=== PATIENT | female | born 2000 | race Caucasian/White ===

== ENCOUNTER 2023-04-28 09:40 | Inpatient (IN) | payer OTHER ==
[2023-04-29] MEDS ORDERED: Bupivacaine 0.25% HCL 30 ML VIAL ONE (08:00)
[2023-04-29] MEDS ORDERED: Promethazine HCl 25 MG/ML VIAL IM PRN (20:14)
[2023-04-29] MEDS ORDERED: Diphenoxylate HCl/Atropine Tablet PO PRN (20:14)
[2023-04-29] MEDS ORDERED: hydrALAZINE 20 MG/ML VIAL SLOW IVP PRN (20:14)
[2023-04-29] MEDS ORDERED: Misoprostol 200 MCG TAB PR PRN (20:14)
[2023-04-29] MEDS ORDERED: HYDROcodone/Acetaminophen 5/325 mg Tablet PO PRN (20:14)
[2023-04-29] MEDS ORDERED: Oxytocin 30 units/NS 500 ML 500 ML IV SCH ×3 (20:14)
[2023-04-29] MEDS ORDERED: Methylergonovine 0.2 MG/ML VIAL IM PRN (20:14)
[2023-04-29] MEDS ORDERED: Acetaminophen 500 MG TAB PO PRN (20:14)
[2023-04-29] MEDS ORDERED: Lidocaine 1% (PF) 30 ML VIAL SC PRN (20:14)
[2023-04-29] MEDS ORDERED: Ibuprofen 800 MG TAB PO PRN (20:14)
[2023-04-29] MEDS ORDERED: Tranexamic Acid 1,000 MG/10 ML VIAL IVP PRN (20:14)
[2023-04-29] MEDS ORDERED: fentaNYL 50 mcg/mL 1 mL Vial SLOW IVP PRN (20:14)
[2023-04-29] MEDS ORDERED: Carboprost 250 MCG/ML AMP IM PRN (20:14)
[2023-04-29] MEDS ORDERED: Ondansetron PF 4 MG/2 ML Vial IVP PRN (20:14)
[2023-04-29 20:15] VITALS: BMI 34.2
[2023-04-29] MEDS: Misoprostol 100 MCG TAB PO SCH (20:49)
[2023-04-29] MEDS: Lactated Ringer's 1,000 ML IV SCH (20:49)
[2023-04-29 21:03] LABS: Hematocrit 34.9 % (34.9-44.5); Hemoglobin 12.4 g/dL (12.0-15.5); Mean Corpuscular HGB CONC 35.5 g/dL (32.0-36.0); Mean Corpuscular Hemoglobin 32.5 pg (27.0-33.0); Mean Corpuscular Volume 91.6 fl (81.6-98.3); Mean Platelet Volume 10.2 fl (7.4-10.4); Platelet Count 309 10x3/uL (150-450); RBC Distribution Width 12.6 % (11.5-14.5); Red Blood Cell (RBC) Count 3.81 10x6/uL (3.90-5.03); White Blood Cell (WBC) Count 10.7 10x3/uL (3.5-10.5)
[2023-04-29 21:49] LABS: Syphilis Antibody Nonreactive (Nonreactive)
[2023-04-29 21:51] LABS: HBSAg Index 0.17 S/CO (0-0.99); Hep B Surf Ag - L&D Non-Reactive S/CO (NonReactive)
[2023-04-30] MEDS: Misoprostol 100 MCG TAB PO SCH ×4 (00:16→20:09)
[2023-04-30] MEDS ORDERED: Penicillin G Potassium 5 MILL.UNITS in Sodium Chloride 0.9% 100 ML IVPB SCH (01:00)
[2023-04-30] MEDS: Penicillin G 2.5 MILL.units 2.5 MILL.UNITS in Premix 1 BAG IVPB SCH ×4 (04:08→20:10)
[2023-04-30] MEDS ORDERED: fentaNYL/Ropivacaine Epidural 100 ML ONE (13:58)
[2023-04-30] MEDS ORDERED: Promethazine HCl 25 MG/ML VIAL IM PRN (14:55)
[2023-04-30] MEDS ORDERED: Naloxone HCl 0.4 mg/ml Vial IVP PRN ×2 (14:55)
[2023-04-30] MEDS ORDERED: Ondansetron PF 4 MG/2 ML Vial IVP PRN (14:55)
[2023-04-30] MEDS ORDERED: ePHEDrine Sulfate 50 MG/10 ML VIAL SLOW IVP PRN (14:55)
[2023-04-30] MEDS ORDERED: Lactated Ringer's 500 ML IV PRN (14:55)
[2023-04-30] MEDS ORDERED: Acetaminophen 325 MG TAB PO PRN (14:55)
[2023-04-30] MEDS ORDERED: Moisturizing Cream (Eucerin) 113 GM JAR TOP PRN (14:55)
[2023-04-30] MEDS ORDERED: diphenhydrAMINE 50 MG/ML VIAL IVP PRN (14:55)
[2023-04-30] MEDS ORDERED: fentaNYL 2 mcg/Ropivacaine 0.2% Epidural 100 ML CADD EPIDURAL SCH (15:00)
[2023-04-30] MEDS ORDERED: Communication Order-Pharmacy FS SCH (15:00)
[2023-04-30] MEDS: Lactated Ringer's 1,000 ML IV SCH ×2 (15:02→20:09)
[2023-04-30] MEDS ORDERED: Azithromycin 500 MG VIAL ONE (23:37)
[2023-04-30] MEDS ORDERED: CEFAZOLIN 2 GM VIAL ONE (23:37)
[2023-04-30] MEDS ORDERED: Azithromycin 500 MG in Sodium Chloride 0.9% 250 ML 250 ML IVPB SCH (23:45)
[2023-04-30] MEDS ORDERED: CEFAZOLIN 2 GM in Sodium Chloride 0.9% 100 ML IVPB SCH (23:45)
[2023-04-30] MEDS ORDERED: Lidocaine 2% MPF 10 ML AMP (For Epidural Use) ONE (23:47)
[2023-04-30] MEDS ORDERED: Famotidine/PF 20 mg/2ml Vial SLOW IVP PRN (23:54)
[2023-04-30] MEDS ORDERED: Bicitra 30 ML UDCUP PO PRN (23:54)
[2023-04-30] MEDS ORDERED: Ondansetron PF 4 MG/2 ML Vial ONE (23:56)
[2023-04-30] MEDS ORDERED: Ketorolac Tromethamine 30 MG/ML VIAL ONE (23:57)
[2023-04-30] MEDS ORDERED: Morphine PF 10 MG/10 ML VIAL ONE (23:57)
[2023-04-30] MEDS ORDERED: Oxytocin 10 UNITS/ML VIAL ONE (23:57)
[2023-05-01] MEDS ORDERED: PHENYLEPHRINE-NS 100 MCG/ML 10 ML SYRINGE ONE (00:10)
[2023-05-01] MEDS ORDERED: diphenhydrAMINE 50 MG/ML VIAL IVP PRN (00:20)
[2023-05-01] MEDS ORDERED: HYDROmorphone 0.5 MG/0.5 ML SYRINGE SLOW IVP PRN (00:20)
[2023-05-01] MEDS ORDERED: Promethazine HCl 25 MG SUPP PR PRN (00:20)
[2023-05-01] MEDS ORDERED: Promethazine HCl 25 MG/ML VIAL IM PRN ×2 (00:20→03:53)
[2023-05-01] MEDS ORDERED: Moisturizing Cream (Eucerin) 113 GM JAR TOP PRN (00:20)
[2023-05-01] MEDS ORDERED: Meperidine HCl/PF 25 MG/ML VIAL SLOW IVP PRN (00:20)
[2023-05-01] MEDS ORDERED: Ketorolac Tromethamine 30 MG/ML VIAL IVP PRN (00:20)
[2023-05-01] MEDS ORDERED: Ondansetron PF 4 MG/2 ML Vial IVP PRN ×3 (00:20→03:53)
[2023-05-01] MEDS ORDERED: Naloxone HCl 0.4 mg/ml Vial IV PRN (00:20)
[2023-05-01] MEDS ORDERED: Naloxone HCl 0.4 mg/ml Vial IVP PRN ×2 (00:20)
[2023-05-01] MEDS ORDERED: Communication Order-Pharmacy FS SCH ×2 (00:30→04:00)
[2023-05-01] MEDS ORDERED: Ketorolac Tromethamine 30 MG/ML VIAL IVP SCH (00:30)
[2023-05-01] MEDS: fentaNYL 50 mcg/mL 1 mL Vial SLOW IVP PRN ×2 (00:59→03:03)
[2023-05-01] MEDS: Penicillin G 2.5 MILL.units 2.5 MILL.UNITS in Premix 1 BAG IVPB SCH (01:21)
[2023-05-01] MEDS: Misoprostol 100 MCG TAB PO SCH (01:36)
[2023-05-01] MEDS: Lactated Ringer's 1,000 ML IV SCH (01:37)
[2023-05-01] MEDS ORDERED: fentaNYL 50 mcg/mL 1 mL Vial ONE (03:01)
[2023-05-01] MEDS ORDERED: Lanolin Ointment 7 GM TUBE TOP PRN (03:53)
[2023-05-01] MEDS ORDERED: Boostrix 0.5 ML (Tdap) VIAL (>/=7 yrs of age) IM ONE (03:53)
[2023-05-01] MEDS ORDERED: hydrALAZINE 20 MG/ML VIAL SLOW IVP PRN (03:53)
[2023-05-01] MEDS ORDERED: diphenhydrAMINE 25 MG CAP PO PRN (03:53)
[2023-05-01] MEDS ORDERED: Bisacodyl 10 MG SUPP PR PRN (03:53)
[2023-05-01] MEDS ORDERED: Simethicone Chewable 80 MG TAB PO PRN (03:53)
[2023-05-01] MEDS ORDERED: fentaNYL 50 mcg/mL 1 mL Vial SLOW IVP PRN (04:43)
[2023-05-01] MEDS: Ketorolac Tromethamine 30 MG/ML VIAL IVP SCH ×3 (06:15→17:56)
[2023-05-01] MEDS: Ferrous Sulfate 325 MG TAB PO SCH (07:24)
[2023-05-01] MEDS: Prenatal Vitamin 1 TAB PO SCH (08:19)
[2023-05-01] MEDS: Docusate 100 MG CAP PO SCH ×2 (08:19→20:58)
[2023-05-01] MEDS ORDERED: Meperidine HCl/PF 25 MG/ML VIAL IM PRN (12:30)
[2023-05-01] MEDS ORDERED: HYDROcodone/Acetaminophen 5/325 mg Tablet PO PRN (12:30)
[2023-05-01] MEDS: HYDROcodone/Acetaminophen 5/325 mg Tablet PO PRN (13:43)
[2023-05-02] MEDS: Ketorolac Tromethamine 30 MG/ML VIAL IVP SCH (00:06)
[2023-05-02 03:46] LABS: Hematocrit 30.4 % (34.9-44.5); Hemoglobin 10.5 g/dL (12.0-15.5); Mean Corpuscular HGB CONC 34.5 g/dL (32.0-36.0); Mean Corpuscular Hemoglobin 31.8 pg (27.0-33.0); Mean Corpuscular Volume 92.1 fl (81.6-98.3); Mean Platelet Volume 10.2 fl (7.4-10.4); Platelet Count 249 10x3/uL (150-450); RBC Distribution Width 12.6 % (11.5-14.5); White Blood Cell (WBC) Count 11.8 10x3/uL (3.5-10.5)
[2023-05-02] MEDS: HYDROcodone/Acetaminophen 5/325 mg Tablet PO PRN (05:30)
[2023-05-02] MEDS: Ibuprofen 800 MG TAB PO SCH ×3 (05:31→21:34)
[2023-05-02] MEDS: Ferrous Sulfate 325 MG TAB PO SCH ×3 (05:34→21:29)
[2023-05-02] MEDS: Prenatal Vitamin 1 TAB PO SCH (08:23)
[2023-05-02] MEDS: Docusate 100 MG CAP PO SCH ×2 (08:23→21:34)
[2023-05-03] MEDS: Ibuprofen 800 MG TAB PO SCH (05:41)
[2023-05-03] MEDS: Ferrous Sulfate 325 MG TAB PO SCH (08:06)
[2023-05-03] MEDS: Prenatal Vitamin 1 TAB PO SCH (08:13)
[2023-05-03] MEDS: Docusate 100 MG CAP PO SCH (08:13)
[2023-05-03 09:03] VITALS: BP 112/73; TEMP 98.4
== END 2023-05-03 12:30 | disposition home or self-care (01) | DRG 788 ==
LOC: CSHLD 04-29 19:50 → CSHPP 05-01 03:22
PROVIDERS: ADMIT Family Medicine; ATTEND Family Medicine
PROC: 10D00Z1 Extraction of Products of Conception, Low, Open Approach (ICD-10-PCS; principal; 2023-05-01)
PROC: 10907ZC Drainage of Amniotic Fluid, Therapeutic from Products of Conception, Via Natural or Artificial Opening (ICD-10-PCS; 2023-05-01)
PROC: 10H07YZ Insertion of Other Device into Products of Conception, Via Natural or Artificial Opening (ICD-10-PCS; 2023-05-01)
PROC: 3E033XZ Introduction of Vasopressor into Peripheral Vein, Percutaneous Approach (ICD-10-PCS; 2023-05-01)
DX: O76 Abnormality in fetal heart rate and rhythm complicating labor and delivery (principal); O48.0 Post-term pregnancy; O62.1 Secondary uterine inertia; Z3A.40 40 weeks gestation of pregnancy; Z37.0 Single live birth; Z98.891 History of uterine scar from previous surgery
CPT/HCPCS: 36415; 51702; 85027; 86780; 86850; 86900; 86901; 87340; J1885; J2274; J2405; J2540; J2590; J3010; J3490; J7120; S0020